=== PATIENT | female | born 1995 ===

== ENCOUNTER 2019-02-05 16:47 | Emergency (ER) | payer BC ==
--- NOTE | 2019-02-05 17:03 | EDM.PDOC ---
<Mamadou Colon J - Last Filed: 02/05/19 17:01> ED HPI GENERAL MEDICAL PROBLEM - General Chief Complaint: [employer]F [employer] SAFETY [employer] PROTECTION Problem Stated Complaint: ABDOMINAL PAIN Time Seen by Provider: 02/05/19 16:58 - History of Present Illness INITIAL COMMENTS - FREE TEXT/NARRATIVE: HISTORY AND PHYSICAL: History of present illness: Patient's 23-year-old female who presents with concern abdominal cramping and bleeding who is approximately 6-7 weeks she's had 2 prior pregnancies with normal vaginal deliveries. This note shortness of breath dizziness or other concerns. Review of systems: As per history of present illness and below otherwise all systems reviewed and negative. Past medical history: As per history of present illness and as reviewed below otherwise noncontributory. Surgical history: As per history of present illness and as reviewed below otherwise noncontributory. Social history: No reported history of drug or alcohol abuse. Family history: As per history of present illness and as reviewed below otherwise noncontributory. Physical exam: HEENT: Atraumatic, normocephalic, pupils reactive, negative for conjunctival pallor or scleral icterus, mucous membranes moist, throat clear, neck supple, nontender, trachea midline. Lungs: Clear to auscultation, breath sounds equal bilaterally, chest nontender. Heart: S1S2, regular, negative for clicks, rubs, or JVD. Abdomen: Soft, nondistended, nontender. Negative for masses or hepatosplenomegaly. Negative for costovertebral tenderness. Pelvis: Stable nontender. Genitourinary: Deferred. Rectal: Deferred. Extremities: Atraumatic, negative for cords or calf pain. Neurovascular unremarkable. Neuro: Awake, alert, oriented. Cranial nerves II through XII unremarkable. Cerebellum unremarkable. Motor and sensory unremarkable throughout. Exam nonfocal. Diagnostics: CBC CMP quantitative beta UA ABO Rh Therapeutics: None Impression: #1 first trimester bleeding #2 threatened Definitive disposition and diagnosis as appropriate pending reevaluation and review of above. low back and low abd Pain Score (Numeric/FACES): 4 - Related Data Allergies Allergy/AdvReac Type Severity Reaction Status Date / Time iodine Allergy Anaphylactic Verified 02/05/19 16:54 Shock shellfish derived Allergy Anaphylactic Verified 02/05/19 16:54 Shock Home Meds: Home Meds Pnv No.122/Iron/Folic Acid [ Multi Tablet] 1 each PO DAILY 11/08/15 [ History] Past Medical History - Past Health History Medical/Surgical History: Denies Medical/Surgical History HEENT History: Reports: None Cardiovascular History: Reports: None Respiratory History: Reports: None Gastrointestinal History: Reports: None Genitourinary History: Reports: None CHIEF OF SAFETY AND PROTECTION History: Reports: Musculoskeletal History: Reports: None Neurological History: Reports: None Psychiatric History: Reports: None Endocrine/Metabolic History: Reports: None Hematologic History: Reports: None Immunologic History: Reports: None Oncologic (Cancer) History: Reports: None Dermatologic History: Reports: None - Past Surgical History Head Surgeries/Procedures: Reports: None HEENT Surgical History: Reports: None Cardiovascular Surgical History: Reports: None Respiratory Surgical History: Reports: None GI Surgical History: Reports: Cholecystectomy Female Surgical History: Reports: None Endocrine Surgical History: Reports: None Neurological Surgical History: Reports: None Musculoskeletal Surgical History: Reports: None Dermatological Surgical History: Reports: None Social & Family History - Family History Family Medical History: Noncontributory - Tobacco Use Smoking Status *Q: Never Smoker - Caffeine Use Caffeine Use: Reports: Coffee, Soda, Tea - Recreational Drug Use Recreational Drug Use: No ED ROS GENERAL - Review of Systems Review Of Systems: ROS reveals no pertinent complaints other than HPI. ED EXAM, GENERAL - Physical Exam Exam: See Below (See dictation) Course - Vital Signs Last Recorded V/S: Last Vital Signs Temp 96.9 F 02/05/19 16:51 Pulse 97 02/05/19 16:51 Resp 18 02/05/19 16:51 BP 139/86 02/05/19 16:51 Pulse Ox 100 02/05/19 16:51 - Orders/Labs/Meds Labs: Laboratory Tests 02/05/19 02/05/19 02/05/19 Range/Units 17:19 17:19 17:19 WBC 7.67 (4.0-11.0) K/uL RBC 4.72 (4.30-5.90) M/uL Hgb 11.6 L (12.0-16.0) g/dL Hct 36.8 (36.0-46.0) % MCV 78.0 L (80.0-98.0) fL MCH 24.6 L (27.0-32.0) pg MCHC 31.5 (31.0-37.0) g/dL RDW Std Deviation 40.1 (28.0-62.0) fl RDW Coeff of Thelma 14 (11.0-15.0) % Plt Count 243 (150-400) K/uL MPV 12.00 (7.40-12.00) fL Neut % (Auto) 62.8 (48.0-80.0) % Lymph % (Auto) 29.9 (16.0-40.0) % Starke % (Auto) 6.4 (0.0-15.0) % Eos % (Auto) 0.8 (0.0-7.0) % Baso % (Auto) 0.1 (0.0-1.5) % Neut # (Auto) 4.8 (1.4-5.7) K/uL Lymph # (Auto) 2.3 (0.6-2.4) K/uL Starke # (Auto) 0.5 (0.0-0.8) K/uL Eos # (Auto) 0.1 (0.0-0.7) K/uL Baso # (Auto) 0.0 (0.0-0.1) K/uL Nucleated RBC % 0.0 /100WBC Nucleated RBCs # 0 K/uL Sodium 138 (136-145) mmol/L Potassium 3.5 (3.5-5.1) mmol/L Chloride 102 (98-107) mmol/L Carbon Dioxide 22.2 (21.0-32.0) mmol/L BUN 7 (7.0-18.0) mg/dL Creatinine 0.5 L (0.6-1.0) mg/dL Est Cr Clr Drug Dosing 149.82 mL/min Estimated GFR (MDRD) > 60.0 ml/min Glucose 95 (74-106) mg/dL Calcium 8.8 (8.5-10.1) mg/dL Total Bilirubin 0.3 (0.2-1.0) mg/dL AST 22 (15-37) IU/L ALT 36 (14-63) IU/L Alkaline Phosphatase 72 (46-116) U/L Total Protein 7.7 (6.4-8.2) g/dL Albumin 4.0 (3.4-5.0) g/dL Globulin 3.7 (2.6-4.0) g/dL Albumin/Globulin Ratio 1.1 (0.9-1.6) HCG, Quant 3283.0 mIU/mL Urine Color Urine Appearance Urine pH (5.0-8.0) Ur Specific Sanderson (1.001-1.035) Urine Protein (NEGATIVE) mg/dL Urine Glucose (UA) (NEGATIVE) mg/dL Urine Ketones (NEGATIVE) mg/dL Urine Occult Blood (NEGATIVE) Urine Nitrite (NEGATIVE) Urine Bilirubin (NEGATIVE) Urine Urobilinogen (<2.0) EU/dL Ur Leukocyte Esterase (NEGATIVE) Urine RBC (0-2/HPF) Urine WBC (0-5/HPF) Ur Epithelial Cells (NONE-FEW) Urine Bacteria (NEGATIVE) Urine Mucus (NONE-MOD) 02/05/19 Range/Units 17:30 WBC (4.0-11.0) K/uL RBC (4.30-5.90) M/uL Hgb (12.0-16.0) g/dL Hct (36.0-46.0) % MCV (80.0-98.0) fL MCH (27.0-32.0) pg MCHC (31.0-37.0) g/dL RDW Std Deviation (28.0-62.0) fl RDW Coeff of Thelma (11.0-15.0) % Plt Count (150-400) K/uL MPV (7.40-12.00) fL Neut % (Auto) (48.0-80.0) % Lymph % (Auto) (16.0-40.0) % Starke % (Auto) (0.0-15.0) % Eos % (Auto) (0.0-7.0) % Baso % (Auto) (0.0-1.5) % Neut # (Auto) (1.4-5.7) K/uL Lymph # (Auto) (0.6-2.4) K/uL Starke # (Auto) (0.0-0.8) K/uL Eos # (Auto) (0.0-0.7) K/uL Baso # (Auto) (0.0-0.1) K/uL Nucleated RBC % /100WBC Nucleated RBCs # K/uL Sodium (136-145) mmol/L Potassium (3.5-5.1) mmol/L Chloride (98-107) mmol/L Carbon Dioxide (21.0-32.0) mmol/L BUN (7.0-18.0) mg/dL Creatinine (0.6-1.0) mg/dL Est Cr Clr Drug Dosing mL/min Estimated GFR (MDRD) ml/min Glucose (74-106) mg/dL Calcium (8.5-10.1) mg/dL Total Bilirubin (0.2-1.0) mg/dL AST (15-37) IU/L ALT (14-63) IU/L Alkaline Phosphatase (46-116) U/L Total Protein (6.4-8.2) g/dL Albumin (3.4-5.0) g/dL Globulin (2.6-4.0) g/dL Albumin/Globulin Ratio (0.9-1.6) HCG, Quant mIU/mL Urine Color YELLOW Urine Appearance CLEAR Urine pH 6.5 (5.0-8.0) Ur Specific Sanderson <= 1.005 (1.001-1.035) Urine Protein NEGATIVE (NEGATIVE) mg/dL Urine Glucose (UA) NEGATIVE (NEGATIVE) mg/dL Urine Ketones 15 H (NEGATIVE) mg/dL Urine Occult Blood LARGE H (NEGATIVE) Urine Nitrite NEGATIVE (NEGATIVE) Urine Bilirubin NEGATIVE (NEGATIVE) Urine Urobilinogen 0.2 (<2.0) EU/dL Ur Leukocyte Esterase NEGATIVE (NEGATIVE) Urine RBC 4-6 (0-2/HPF) Urine WBC 0-2 (0-5/HPF) Ur Epithelial Cells FEW (NONE-FEW) Urine Bacteria FEW (NEGATIVE) Urine Mucus RARE (NONE-MOD) Meds: Medications Discontinued Medications Generic Name Dose Route Start Last Admin Trade Name Freq PRN Reason Stop Dose Admin Acetaminophen 650 mg 02/05/19 18:28 02/05/19 18:39 Tylenol PO 02/05/19 18:29 650 mg NOW ONE Administration Departure - Departure Disposition: Home, Self-Care 01 Clinical Impression: Threatened miscarriage - Discharge Information Instructions: Threatened Miscarriage, [id number] Referrals: PCP,None [Primary Care Provider] - Forms: ED Department Discharge Additional Instructions: The following information is given to patients seen in the emergency department who are being discharged to home. This information is to outline your options for follow-up care. We provide all patients seen in our emergency department with a follow-up referral. The need for follow-up, as well as the timing and circumstances, are variable depending upon the specifics of your emergency department visit. If you don't have a primary care physician on staff, we will provide you with a referral. We always advise you to contact your personal physician following an emergency department visit to inform them of the circumstance of the visit and for follow-up with them and/or the need for any referrals to a consulting specialist. The emergency department will also refer you to a specialist when appropriate. This referral assures that you have the opportunity for follow-up care with a specialist. All of these measure are taken in an effort to provide you with optimal care, which includes your follow-up. Under all circumstances we always encourage you to contact your private physician who remains a resource for coordinating your care. When calling for follow-up care, please make the office aware that this follow-up is from your recent emergency room visit. If for any reason you are refused follow-up, please contact the [facility] Emergency Department at and asked to speak to the emergency department charge nurse. [facility] [address] [place] [address] [place] [address] 1. Please start and/or continue to take your vitamin with folic acid once daily. 2. Pelvic rest until cleared by your OBGYN (no tampons, sex, etc...) 3. Tylenol as needed for pain management. 4. Follow up with her CHIEF OF SAFETY AND PROTECTION in the next 1-2 days. Please have your quant HCG ( hormone) repeated in 2 days 5. Return to the ED as needed and as discussed. <Juli Mendez E - Last Filed: 02/05/19 19:08> ED HPI GENERAL MEDICAL PROBLEM - History of Present Illness INITIAL COMMENTS - FREE TEXT/NARRATIVE: Ultrasound shows a single intrauterine gestational sac and yolk sac. pole and cardiac activity are not identified likely due to early stage of . Of concern, the sac is situated low with the endometrial canal. Findings were shared and discussed with patient. Supportive care measures were reviewed and discussed. Encouraged her to follow-up with her [facility]F OF SAFETY AND PROTECTION sooner than she had planned as she will need a repeat quantitative hCG. Patient voices understanding and is agreeable to plan of care. Denies any further questions or concerns at this time. Plan: 1. Please start and/or continue to take your vitamin with folic acid once daily. 2. Pelvic rest until cleared by your OBGYN (no tampons, sex, etc...) 3. Tylenol as needed for pain management. 4. Follow up with her [facility] [employer] SAF[employer]Y [employer] PROTECTION in the next 1-2 days. Return to the ED as needed and as discussed. Departure - Departure Time of Disposition: 19:07
[2019-02-05 17:56] LABS: BLOOD UREA NITROGEN,BUN 7 mg/dL (7.0-18.0); CARBON DIOXIDE,CO2 22.2 mmol/L (21.0-32.0); CHLORIDE,CL 102 mmol/L (98-107); GLUCOSE RANDOM 95 mg/dL (74-106); POTASSIUM,K 3.5 mmol/L (3.5-5.1); SODIUM,NA 138 mmol/L (136-145)
[2019-02-05] MEDS ORDERED: Acetaminophen 325 MG Tab PO ONE (18:28)
--- NOTE | 2019-02-05 19:02 | US ---
INDICATION: Vaginal bleeding TECHNIQUE: Ultrasound OB pelvis transvaginal. Real-time gore-scale imaging of the pelvis was performed. COMPARISON: None FINDINGS: Sonographic imaging demonstrates a single gestational sac and yolk sac. Mean sac diameter is 0.6 cm. pole and cardiac activity are not identified with certainty. The sac is situated low within the endometrial canal. There is some heterogeneous material within the lower endometrium. The ovaries are of normal size. There is a 1.3 x 1.3 x 1.5 cm heterogeneous lesion on the left ovary likely representing corpus luteum cyst. There are no suspicious fluid collections noted in the cul-de-sac. IMPRESSION: Single intrauterine gestational sac and yolk sac. pole and cardiac activity not identified likely due to early stage of . Of concern, the sac is situated low within the endometrial canal. Heterogeneous material in the lower endometrium likely represents small amount of hemorrhage. Likely corpus luteum cyst on the left ovary. Dictated by Bonnie Harper MD @ Feb 05 2019 6:50PM Signed by Dr. Bonnie Harper @ Feb 05 2019 7:01PM
[2019-02-05 19:34] VITALS: BP 145/80; PULSE 102
== END 2019-02-05 19:33 | disposition home or self-care (01) ==
LOC: MW.ED 16:47
DX: O20.0 Threatened abortion (principal); Z3A.01 Less than 8 weeks gestation of pregnancy; Z88.8 Allergy status to other drugs, medicaments and biological substances; Z91.013 Allergy to seafood
CPT/HCPCS: 36415; 76801; 80053; 81001; 84702; 85025; 99284; A9270; 99283

== ENCOUNTER 2019-05-07 22:38 | Emergency (ER) | payer BC ==
[2019-05-07] MEDS ORDERED: Sodium Chloride 0.9% 1,000 ML IV ONE (23:15)
[2019-05-07] MEDS ORDERED: Sodium Chloride 0.9% 10 ML Syringe FLUSH PRN (23:15)
[2019-05-07] MEDS ORDERED: Famotidine 20 MG/2 ML SDV IVPUSH ONE (23:15)
[2019-05-07] MEDS ORDERED: Ondansetron 4 MG/2 ML SDV IVPUSH ONE (23:15)
[2019-05-07] MEDS ORDERED: Sodium Chloride 0.9% 2.5 ML Syringe FLUSH PRN (23:15)
--- NOTE | 2019-05-07 23:17 | EDM.PDOC ---
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 She said she has a fever twice today and the last one was 101.5 for which she took Tylenol. She has had intermittent vomiting and she has not been able to keep anything down despite taking Zofran she was given by her provider. She has no urinary complaints no flank pain and no specific localization of her abdominal pain. Not had diarrhea and she has no ill contacts and no upper respiratory symptoms such as chest pain shortness of breath sore throat or runny nose. The patient did get her influenza shot this year. She tells me that she did not connect with her provider today about her diffuse abdominal pain with vomiting and fever. She also says that when she was vomiting he did see some streaks of blood but no clots or kylah blood which worried her. Review of systems: As per history of present illness and below otherwise all systems reviewed and negative. Past medical history: As per history of present illness and as reviewed below otherwise noncontributory. Surgical history: As per history of present illness and as reviewed below otherwise noncontributory. Social history: No reported history of drug or alcohol abuse. Family history: As per history of present illness and as reviewed below otherwise noncontributory. Physical exam: General: Well-developed well-nourished female who is nontoxic and vital signs are noted by me. She moves easily in the ED without distress HEENT: Atraumatic, normocephalic, pupils reactive, negative for conjunctival pallor or scleral icterus, mucous membranes moist, throat clear, neck supple, nontender, trachea midline. Lungs: Clear to auscultation, breath sounds equal bilaterally, chest nontender. Heart: S1S2, regular, and rhythm no overt murmurs Abdomen: Soft, nondistended, some mild diffuse abdominal pain without localization and the uterus is palpable just below the umbilicus without tenderness.. Negative for masses or hepatosplenomegaly. Negative for costovertebral tenderness. Pelvis: Stable nontender. Genitourinary: Deferred. Rectal: Deferred. Extremities: Atraumatic, negative for cords or calf pain. Neurovascular unremarkable. Neuro: Awake, alert, oriented. Cranial nerves II through XII unremarkable. Cerebellum unremarkable. Motor and sensory unremarkable throughout. Exam nonfocal. Diagnostics: heart tones per nursing CBC CMP hCG quant UA with reflex lipase influenza lactic acid urine culture pelvic US/renal US Therapeutics: IV fluids Pepcid Zofran Rocephin The heart tones per nursing were [phone]: Case was discussed with Dr. Bolanos and he is aware of the ultrasound results of the lab test and the patient presentation. He agrees with discharge home with close follow-up in the clinic and wants the patient to call in the morning for that follow-up. Patient still is afebrile here in the ED Impression: UTI, abdominal pain second trimester with complete placenta previa stable hiStory of fever Definitive disposition and diagnosis as appropriate pending reevaluation and review of above. Abdomen Pain Score (Numeric/FACES): 8 - Related Data Allergies Allergy/AdvReac Type Severity Reaction Status Date / Time iodine Allergy Anaphylactic Verified 05/07/19 22:53 Shock shellfish derived Allergy Anaphylactic Verified 05/07/19 22:53 Shock Home Meds: Home Meds No122/Iron/Folic Acid [ Multi Tablet] 1 each PO DAILY 11/08/15 [History] Non-Formulary Medication [NF Drug] 1 each PO ASDIRECTED PRN 05/07/19 [History] Ondansetron [Zofran] 8 mg PO ASDIRECTED PRN 05/07/19 [History] Past Medical History - Past Health History Medical/Surgical History: Denies Medical/Surgical History HEENT History: Reports: None Cardiovascular History: Reports: None Respiratory History: Reports: None Gastrointestinal History: Reports: None Genitourinary History: Reports: None 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: Musculoskeletal History: Reports: None Neurological History: Reports: None Psychiatric History: Reports: None Endocrine/Metabolic History: Reports: None Hematologic History: Reports: None Immunologic History: Reports: None Oncologic (Cancer) History: Reports: None Dermatologic History: Reports: None - Infectious Disease History Infectious Disease History: Reports: Chicken Pox - Past Surgical History Head Surgeries/Procedures: Reports: None HEENT Surgical History: Reports: None Cardiovascular Surgical History: Reports: None Respiratory Surgical History: Reports: None GI Surgical History: Reports: Cholecystectomy Female Surgical History: Reports: None Endocrine Surgical History: Reports: None Neurological Surgical History: Reports: None Musculoskeletal Surgical History: Reports: None Dermatological Surgical History: Reports: None Social & Family History - Family History Family Medical History: Noncontributory - Tobacco Use Smoking Status *Q: Never Smoker - Caffeine Use Caffeine Use: Reports: Coffee, Energy Drinks - Recreational Drug Use Recreational Drug Use: No ED ROS GENERAL - Review of Systems Review Of Systems: Comprehensive ROS is negative, except as noted in HPI. ED EXAM, GENERAL - Physical Exam Exam: See Below (see Dictation) Course - Vital Signs Last Recorded V/S: Last Vital Signs Temp 36.6 C 05/07/19 22:55 Pulse 80 05/07/19 22:55 Resp 16 05/07/19 22:55 BP 111/77 05/07/19 22:55 Pulse Ox 96 05/07/19 22:55 - Orders/Labs/Meds Orders: Active Orders 24 hr Category Date Time Status OB 2 Or 3 Tri Sgl 1st Gest [US] Stat Exams 05/07/19 23:51 Stop Req CULTURE URINE [RM] Stat Lab 05/08/19 00:10 Received Sodium Chloride 0.9% [Saline Flush] Med 05/07/19 23:15 Active 10 ml FLUSH ASDIRECTED PRN Sodium Chloride 0.9% [Saline Flush] Med 05/07/19 23:15 Active 2.5 ml FLUSH ASDIRECTED PRN Saline Lock Insert [OM.PC] Stat Oth 05/07/19 23:15 Ordered Medication Orders Sodium Chloride (Saline Flush) 10 ml FLUSH ASDIRECTED PRN PRN Reason: Keep Vein Open Sodium Chloride (Saline Flush) 2.5 ml FLUSH ASDIRECTED PRN PRN Reason: Keep Vein Open Labs: Laboratory Tests 05/07/19 05/07/19 05/07/19 Range/Units 23:05 23:05 23:05 WBC 10.57 (4.0-11.0) K/uL RBC 4.57 (4.30-5.90) M/uL Hgb 12.0 (12.0-16.0) g/dL Hct 35.1 L (36.0-46.0) % MCV 76.8 L (80.0-98.0) fL MCH 26.3 L (27.0-32.0) pg MCHC 34.2 (31.0-37.0) g/dL RDW Std Deviation 49.7 (28.0-62.0) fl RDW Coeff of Thelma 18 H (11.0-15.0) % Plt Count 152 (150-400) K/uL MPV 12.00 (7.40-12.00) fL Neut % (Auto) 75.2 (48.0-80.0) % Lymph % (Auto) 19.0 (16.0-40.0) % Sebastian % (Auto) 5.1 (0.0-15.0) % Eos % (Auto) 0.5 (0.0-7.0) % Baso % (Auto) 0.2 (0.0-1.5) % Neut # (Auto) 8.0 H (1.4-5.7) K/uL Lymph # (Auto) 2.0 (0.6-2.4) K/uL Sebastian # (Auto) 0.5 (0.0-0.8) K/uL Eos # (Auto) 0.1 (0.0-0.7) K/uL Baso # (Auto) 0.0 (0.0-0.1) K/uL Nucleated RBC % 0.0 /100WBC Nucleated RBCs # 0 K/uL Lactate 0.7 (0.20-2.00) mmol/L Sodium 138 (136-145) mmol/L Potassium 3.1 L (3.5-5.1) mmol/L Chloride 103 (98-107) mmol/L Carbon Dioxide 19.8 L (21.0-32.0) mmol/L BUN 7 (7.0-18.0) mg/dL Creatinine 0.4 L (0.6-1.0) mg/dL Est Cr Clr Drug Dosing 185.66 mL/min Estimated GFR (MDRD) > 60.0 ml/min Glucose 92 (74-106) mg/dL Calcium 8.9 (8.5-10.1) mg/dL Total Bilirubin 0.3 (0.2-1.0) mg/dL AST 13 L (15-37) IU/L ALT 15 (14-63) IU/L Alkaline Phosphatase 61 (46-116) U/L Total Protein 7.2 (6.4-8.2) g/dL Albumin 3.2 L (3.4-5.0) g/dL Globulin 4.0 (2.6-4.0) g/dL Albumin/Globulin Ratio 0.8 L (0.9-1.6) Lipase 85 (73-393) U/L HCG, Quant 6882.0 mIU/mL Urine Color Urine Appearance Urine pH (5.0-8.0) Ur Specific Phil Campbell (1.001-1.035) Urine Protein (NEGATIVE) mg/dL Urine Glucose (UA) (NEGATIVE) mg/dL Urine Ketones (NEGATIVE) mg/dL Urine Occult Blood (NEGATIVE) Urine Nitrite (NEGATIVE) Urine Bilirubin (NEGATIVE) Urine Urobilinogen (<2.0) EU/dL Ur Leukocyte Esterase (NEGATIVE) Urine RBC (0-2/HPF) Urine WBC (0-5/HPF) Ur Epithelial Cells (NONE-FEW) Urine Bacteria (NEGATIVE) 05/08/19 Range/Units 00:10 WBC (4.0-11.0) K/uL RBC (4.30-5.90) M/uL Hgb (12.0-16.0) g/dL Hct (36.0-46.0) % MCV (80.0-98.0) fL MCH (27.0-32.0) pg MCHC (31.0-37.0) g/dL RDW Std Deviation (28.0-62.0) fl RDW Coeff of Thelma (11.0-15.0) % Plt Count (150-400) K/uL MPV (7.40-12.00) fL Neut % (Auto) (48.0-80.0) % Lymph % (Auto) (16.0-40.0) % Sebastian % (Auto) (0.0-15.0) % Eos % (Auto) (0.0-7.0) % Baso % (Auto) (0.0-1.5) % Neut # (Auto) (1.4-5.7) K/uL Lymph # (Auto) (0.6-2.4) K/uL Sebastian # (Auto) (0.0-0.8) K/uL Eos # (Auto) (0.0-0.7) K/uL Baso # (Auto) (0.0-0.1) K/uL Nucleated RBC % /100WBC Nucleated RBCs # K/uL Lactate (0.20-2.00) mmol/L Sodium (136-145) mmol/L Potassium (3.5-5.1) mmol/L Chloride (98-107) mmol/L Carbon Dioxide (21.0-32.0) mmol/L BUN (7.0-18.0) mg/dL Creatinine (0.6-1.0) mg/dL Est Cr Clr Drug Dosing mL/min Estimated GFR (MDRD) ml/min Glucose (74-106) mg/dL Calcium (8.5-10.1) mg/dL Total Bilirubin (0.2-1.0) mg/dL AST (15-37) IU/L ALT (14-63) IU/L Alkaline Phosphatase (46-116) U/L Total Protein (6.4-8.2) g/dL Albumin (3.4-5.0) g/dL Globulin (2.6-4.0) g/dL Albumin/Globulin Ratio (0.9-1.6) Lipase (73-393) U/L HCG, Quant mIU/mL Urine Color YELLOW Urine Appearance SLT CLOUDY Urine pH 6.5 (5.0-8.0) Ur Specific Phil Campbell 1.025 (1.001-1.035) Urine Protein 100 H (NEGATIVE) mg/dL Urine Glucose (UA) NEGATIVE (NEGATIVE) mg/dL Urine Ketones >=80 (NEGATIVE) mg/dL Urine Occult Blood MODERATE H (NEGATIVE) Urine Nitrite POSITIVE H (NEGATIVE) Urine Bilirubin NEGATIVE (NEGATIVE) Urine Urobilinogen 0.2 (<2.0) EU/dL Ur Leukocyte Esterase SMALL H (NEGATIVE) Urine RBC 1-2 (0-2/HPF) Urine WBC 10-15 (0-5/HPF) Ur Epithelial Cells OCCASIONAL (NONE-FEW) Urine Bacteria 1+ H (NEGATIVE) Meds: Medications Generic Name Dose Route Start Last Admin Trade Name Freq PRN Reason Stop Dose Admin Sodium Chloride 10 ml 05/07/19 23:15 Saline Flush FLUSH ASDIRECTED PRN Keep Vein Open Sodium Chloride 2.5 ml 05/07/19 23:15 Saline Flush FLUSH ASDIRECTED PRN Keep Vein Open Discontinued Medications Generic Name Dose Route Start Last Admin Trade Name Nato PRN Reason Stop Dose Admin Famotidine 20 mg 05/07/19 23:15 05/07/19 23:27 Pepcid IVPUSH 05/07/19 23:16 20 mg ONETIME ONE Administration Sodium Chloride 1,000 mls @ 999 mls/hr 05/07/19 23:15 05/07/19 23:27 Normal Saline IV 05/08/19 00:15 999 mls/hr STAT ONE Administration Ceftriaxone Sodium/Dextrose 2 50 mls @ 100 mls/hr 05/08/19 00:47 05/08/19 01: 03 gm/ Premix IV 05/08/19 01:16 100 mls/hr ONETIME ONE Administration Sodium Chloride 1,000 mls @ 999 mls/hr 05/08/19 00:47 05/08/19 01:03 Normal Saline IV 05/08/19 01:47 999 mls/hr STAT ONE Administration Ondansetron HCl 4 mg 05/07/19 23:15 05/07/19 23:27 Zofran IVPUSH 05/07/19 23:16 4 mg ONETIME ONE Administration Departure - Departure Time of Disposition: 01:59 Disposition: Home, Self-Care 01 Condition: Good Clinical Impression: UTI, Urinary tract infectious disease, Second trimester - Discharge Information Referrals: Frederic Calvo MD [Primary Care Provider] - Forms: ED Department Discharge Additional Instructions: The following information is given to patients seen in the emergency department who are being discharged to home. This information is to outline your options for follow-up care. We provide all patients seen in our emergency department with a follow-up referral. The need for follow-up, as well as the timing and circumstances, are variable depending upon the specifics of your emergency department visit. If you don't have a primary care physician on staff, we will provide you with a referral. We always advise you to contact your personal physician following an emergency department visit to inform them of the circumstance of the visit and for follow-up with them and/or the need for any referrals to a consulting specialist. The emergency department will also refer you to a specialist when appropriate. This referral assures that you have the opportunity for followup care with a specialist. All of these measure are taken in an effort to provide you with optimal care, which includes your followup. Under all circumstances we always encourage you to contact your private physician who remains a resource for coordinating your care. When calling for followup care, please make the office aware that this follow-up is from your recent emergency room visit. If for any reason you are refused follow-up, please contact the [facility] emergency department at and ask to speak to the emergency department charge nurse. [facility] [address] [address] Push hydration and use [id number] Tylenol for any fever and pain management and please call the clinic later this morning and schedule a follow- up appointment with Elizabeth Arnold in the next several days for reevaluation and further care. You have been given an antibiotic to take for your urine infection and a culture was sent and if there is any change in this care plan because of the culture results you will be notified. Return to ER as needed and as discussed Sepsis Event Note - Evaluation Sepsis Screening Result: No Definite Risk - Focused Exam Vital Signs: Vital Signs Temp Pulse Resp BP Pulse Ox 05/07/19 22:55 36.6 C 80 16 111/77 96 Date Exam was Performed: 05/08/19 Time Exam was Performed: 01:58 - My Orders Last 24 Hours: My Active Orders 05/07/19 23:15 Sodium Chloride 0.9% [Saline Flush] 10 ml FLUSH ASDIRECTED PRN Sodium Chloride 0.9% [Saline Flush] 2.5 ml FLUSH ASDIRECTED PRN Saline Lock Insert [OM.PC] Stat 05/07/19 23:51 OB 2 Or 3 Tri Sgl 1st Gest [US] Stat 05/08/19 00:10 CULTURE URINE [RM] Stat - Assessment/Plan Last 24 Hours: My Active Orders 05/07/19 23:15 Sodium Chloride 0.9% [Saline Flush] 10 ml FLUSH ASDIRECTED PRN Sodium Chloride 0.9% [Saline Flush] 2.5 ml FLUSH ASDIRECTED PRN Saline Lock Insert [OM.PC] Stat 05/07/19 23:51 OB 2 Or 3 Tri Sgl 1st Gest [US] Stat 05/08/19 00:10 CULTURE URINE [] Stat
[2019-05-08 00:09] LABS: BLOOD UREA NITROGEN,BUN 7 mg/dL (7.0-18.0); CARBON DIOXIDE,CO2 19.8 mmol/L (21.0-32.0); CHLORIDE,CL 103 mmol/L (98-107); GLUCOSE RANDOM 92 mg/dL (74-106); LIPASE 85 U/L (73-393); POTASSIUM,K 3.1 mmol/L (3.5-5.1); SODIUM,NA 138 mmol/L (136-145)
[2019-05-08] MEDS ORDERED: cefTRIAXone 2 GM in Premix Bag 1 BAG IV ONE (00:47)
[2019-05-08] MEDS ORDERED: Sodium Chloride 0.9% 1,000 ML IV ONE (00:47)
--- NOTE | 2019-05-08 01:07 | US ---
INDICATION: Abdominal pain with fever, gestational age by a LMP is 19 weeks 4 days TECHNIQUE: Ultrasound OB pelvis transabdominal. Real-time gore-scale imaging of the fetus was performed. COMPARISON: February 05, 2019 FINDINGS: Sonographic imaging demonstrates a single living intrauterine gestation. Fetus demonstrates a regular cardiac rate of 148 beats per minute. Fetus has a vertex orientation. The placenta lies posterior with complete placenta previa. Amniotic fluid volume appears normal. Single deepest vertical pocket: 3.9 cm. The cervical length is 4.3 cm. The composite ultrasound gestational age is calculated at 19 weeks 3 days with an estimated sonographic due date of September 29, 2019. The estimated weight is 315 grams which lies at the 60.1 %. The following biometric measurements were obtained: Biparietal diameter: 4.3 cm/19 weeks 0 days Head circumference: 16.5 cm/19 weeks 2 Abdominal circumference: 14.4 cm/19 weeks 5 days Femur length: 3.2 cm/20 weeks 1 day IMPRESSION: Single viable intrauterine . Size corresponds with dates. There is complete placenta previa. Findings discussed with Dr. Garcia at 1:06am at 05/08/2019. Dictated by Bonnie Harper MD @ May 08 2019 1:06AM Signed by Dr. Bonnie Harper @ May 08 2019 1:06AM
--- NOTE | 2019-05-08 01:50 | US ---
INDICATION: UTI TECHNIQUE: Ultrasound renal bilateral. Phipps-scale and color Doppler sonographic images were acquired of the kidneys and urinary bladder. COMPARISON: None FINDINGS: Right kidney: 11.6 x 5.2 x 5.3 cm. Normal echotexture. The cortex is mildly hypoechoic. No masses, stones, or hydronephrosis. Left kidney: 12.3 x 6.1 x 5.8 cm. Normal echotexture. The cortex is mildly hypoechoic. No masses, stones, or hydronephrosis. IMPRESSION: The renal cortex is mildly hypoechoic bilaterally. This is nonspecific but can be seen with pyelonephritis. No hydronephrosis, stone or perinephric fluid collection. Dictated by Bonnie Harper MD @ May 08 2019 1:35AM (Electronically Signed)
[2019-05-08 02:37] VITALS: PULSE 87
[2019-05-08 02:38] VITALS: BP 119/75
== END 2019-05-08 02:27 | disposition home or self-care (01) ==
LOC: MW.ED 22:38
DX: O23.42 Unspecified infection of urinary tract in pregnancy, second trimester (principal); Z88.8 Allergy status to other drugs, medicaments and biological substances; Z91.013 Allergy to seafood; Z79.899 Other long term (current) drug therapy; Z3A.19 19 weeks gestation of pregnancy
CPT/HCPCS: 36415; 76775; 76805; 80053; 81001; 83605; 83690; 84702; 85025; 87086; 87088; 87186; 87804; 96361; 96365; 96375; 99284; J0696; J2405; J7030; S0028; J3490

== ENCOUNTER 2019-09-13 10:13 | Inpatient (IN) | payer BC ==
[2019-09-13] MEDS ORDERED: Sodium Chloride 0.9% 2.5 ML Syringe FLUSH PRN (10:22)
[2019-09-13] MEDS ORDERED: Sodium Chloride 0.9% 10 ML SDV IV PRN (10:22)
[2019-09-13] MEDS ORDERED: Citric Acid/Sodium Citrate Solution 30 ML Cup PO ONE (10:22)
[2019-09-13] MEDS ORDERED: Sodium Chloride 0.9% 10 ML Syringe FLUSH PRN (10:22)
[2019-09-13] MEDS ORDERED: ceFAZolin 2 GM in Premix Bag 1 BAG IV ONE (10:22)
[2019-09-13] MEDS ORDERED: Oxytocin/0.9 % Sodium Chloride 30 UNIT/500 ML BAG IV SCH (10:30)
[2019-09-13] MEDS: Lactated Ringers 1,000 ML IV SCH ×2 (11:01→12:05)
[2019-09-13] MEDS ORDERED: Propofol 200 MG/20 ML SDV ONE (11:23)
[2019-09-13] MEDS ORDERED: Ondansetron 4 MG/2 ML SDV ONE (11:23)
[2019-09-13] MEDS ORDERED: Oxytocin 10 Units/1 ML SDV ONE (11:24)
--- NOTE | 2019-09-13 11:39 | PCM.LDHP ---
L&D History of Present Illness - General Date of Service: 09/13/19 Admit Problem/Dx: Patient Status Order with Admit Dx/Problem 09/13/19 10:22 Patient Status [ADT] Routine Admission Diagnosis/Problem Admission Diagnosis/Problem 09/13/19 11:34 Erika is a 24 yo at 37.0 weeks gestation (ALBERTO 10/04/2019) that presents today for a medically indicated primary section due to complete placenta previa. O pos, RI, GBS neg. Ax: iodine/shellfish (plan to use chlorhexadine products for procedure). Medical history: A1GDM, anxiety, migraines, bicornate uterus. Patient has been seen by Dr. Bolanos about PCS in office, RBAs, SEs discussed, consents signed in office. Patient reports no problems, questions, or concerns at this time except anxiety due to impending surgery. Patient's significant other at the bedside with her. Source of Information: Patient History Limitations: Reports: No Limitations - History of Present Illness Improves with: Reports: None Worsens with: Reports: None Associated Symptoms: Reports: N - Related Data Allergies/Adverse Reactions: Allergies Allergy/AdvReac Type Severity Reaction Status Date / Time iodine Allergy Anaphylactic Verified 09/09/19 12:40 Shock shellfish derived Allergy Anaphylactic Verified 09/09/19 12:40 Shock Home Medications: Home Meds No122/Iron/Folic Acid [ Multi Tablet] 1 each PO DAILY 11/08/15 [History] Past Medical History - Past Health History Medical/Surgical History: Denies Medical/Surgical History HEENT History: Reports: Other (See Below) Other HEENT History: wears glasses Cardiovascular History: Reports: None (3) Respiratory History: Reports: None Gastrointestinal History: Reports: None Genitourinary History: Reports: None 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: , 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 (See Below) (Bicorante uterus) : 3 Para: 2 LMP (Approximate): (Complete placenta previa, anterior) Musculoskeletal History: Reports: None Neurological History: Reports: Migraines Psychiatric History: Reports: Anxiety Endocrine/Metabolic History: Reports: Diabetes, Gestational (A1 GDM) Hematologic History: Reports: None Immunologic History: Reports: None Oncologic (Cancer) History: Reports: None Dermatologic History: Reports: None - Infectious Disease History Infectious Disease History: Reports: Chicken Pox - Past Surgical History Head Surgeries/Procedures: Reports: None HEENT Surgical History: Reports: Oral Surgery Other HEENT Surgeries/Procedures: wisdom teeth extraction Cardiovascular Surgical History: Reports: None Respiratory Surgical History: Reports: None GI Surgical History: Reports: Cholecystectomy Female Surgical History: Reports: None Endocrine Surgical History: Reports: None Neurological Surgical History: Reports: None Musculoskeletal Surgical History: Reports: None Dermatological Surgical History: Reports: None Social & Family History - Family History Family Medical History: Noncontributory - Tobacco Use Smoking Status *Q: Never Smoker - Caffeine Use Caffeine Use: Reports: Coffee, Energy Drinks - Recreational Drug Use Drug Use in Last 12 Months: No H&P Review of Systems - Review of Systems: Review Of Systems: Comprehensive ROS is negative, except as noted in HPI. General: Reports: No Symptoms HEENT: Reports: No Symptoms Pulmonary: Reports: No Symptoms Cardiovascular: Reports: No Symptoms Gastrointestinal: Reports: No Symptoms Genitourinary: Reports: No Symptoms Musculoskeletal: Reports: No Symptoms Skin: Reports: No Symptoms Psychiatric: Reports: No Symptoms Neurological: Reports: No Symptoms Hematologic/Lymphatic: Reports: No Symptoms Immunologic: Reports: No Symptoms L&D Exam - Exam Exam: See Below - Vital Signs Vital Signs: T 97.9 F, HR 96, BP 127/87 (96), 100% on RA, Pain 0/10 Weight: 203 lb - OB Specific Fundal Height In cm: 37 Contraction Duration (sec): 0 Contraction Frequency (min): 0 Movement: Active Heart Tones: Present Heart Tones per Min: 140 Heart Rate (FHR) Variability: Moderate (6-25 bmp) (Pos accels, Neg decels) - Exam General: Alert, Oriented HEENT: Conjunctiva Clear, EACs Clear, EOMI, Hearing Intact, Mucosa Moist & [place] , PERRLA Neck: Supple, Trachea Midline Lungs: Clear to Auscultation, Normal Respiratory Effort Cardiovascular: Regular Rate, Regular Rhythm GI/Abdominal Exam: Normal Bowel Sounds, Soft, Non-Tender, No Organomegaly, No Distention Rectal Exam: Deferred Genitourinary: Deferred Back Exam: Normal Inspection, Full Range of Motion Extremities: Normal Inspection, Normal Range of Motion, Non-Tender, No Pedal Edema, Normal Capillary Refill Skin: Warm, Dry, Intact Neurological: Cranial Nerves Intact, Reflexes Equal Bilateral Psychiatric: Alert, Normal Affect, Normal Mood - Patient Data Lab Results Last 24 hrs: Laboratory Results - last 24 hr 09/13/19 Range/Units 11:17 POC Glucose 79 (60-110) mg/dL - Problem List (1) Placenta previa SNOMED Code(s): 24576548 ICD Code: O44.00 - COMPLETE PLACENTA PREVIA NOS OR WITHOUT HEMOR, UNSP TRI Status: Acute Priority: High Current Visit: Yes (2) 37 weeks gestation of SNOMED Code(s): 18290018 ICD Code: Z3A.37 - 37 WEEKS GESTATION OF Status: Acute Priority : High Current Visit: Yes Problem List Initiated/Reviewed/Updated: Yes Orders Last 24hrs: Active Orders 24 hr Category Date Time Status Patient Status [ADT] Routine ADT 09/13/19 10:22 Active Non Stress Test [RC] PER UNIT ROUTINE Care 09/13/19 10:22 Active Notify Provider Vital Signs [RC] PRN Care 09/13/19 10:22 Active Procedure Site Prep Instruct [RC] ASDIRECTED Care 09/13/19 10:22 Active Up ad Ragini [RC] ASDIRECTED Care 09/13/19 10:22 Active Verify Patient Consent Obtain [RC] ASDIRECTED Care 09/13/19 10:22 Active Vital Signs [RC] PER UNIT ROUTINE Care 09/13/19 10:22 Active CBC W/O DIFF,HEMOGRAM [HEME] Routine Lab 09/13/19 10:22 Ordered RED BLOOD CELLS LP [BBK] Routine Lab 09/13/19 10:22 Ordered RPR (SYPHILIS SERO) W/ RFLX [REF] Routine Lab 09/13/19 10:22 Ordered TYPE AND SCREEN [BBK] Routine Lab 09/13/19 10:22 Ordered Lactated Ringers [Ringers, Lactated] 1,000 ml Med 09/13/19 10:30 Active IV BOLUS Oxytocin/0.9 % Sodium Chloride [Oxytocin 30 Unit/500 ML Med 09/13/19 10:30 Active -NS] 30 unit in 500 ml IV TITRATE Sodium Chloride 0.9% [Normal Saline] Med 09/13/19 10:22 Active 10 ml IV ASDIRECTED PRN Sodium Chloride 0.9% [Saline Flush] Med 09/13/19 10:22 Active 10 ml FLUSH ASDIRECTED PRN Sodium Chloride 0.9% [Saline Flush] Med 09/13/19 10:22 Active 2.5 ml FLUSH ASDIRECTED PRN Peripheral IV Insertion Adult [OM.PC] Routine Oth 09/13/19 10:22 Ordered Schedule Procedure [COMM] Per Unit Routine Oth 09/13/19 10:22 Ordered Resuscitation Status Routine Resus Stat 09/13/19 10:22 Ordered Medication Orders Lactated Ringer's (Ringers, Lactated) 1,000 mls @ 500 mls/hr IV BOLUS COLLIN Last Admin: 09/13/19 11:01 Dose: 500 mls/hr Oxytocin/Sodium Chloride (Oxytocin 30 Unit/500 Ml-Ns) 30 unit in 500 mls @ 250 mls/hr IV TITRATE COLLIN Sodium Chloride (Saline Flush) 10 ml FLUSH ASDIRECTED PRN PRN Reason: Keep Vein Open Sodium Chloride (Saline Flush) 2.5 ml FLUSH ASDIRECTED PRN PRN Reason: Keep Vein Open Sodium Chloride (Normal Saline) 10 ml IV ASDIRECTED PRN PRN Reason: IV Use Assessment/Plan Comment:: Erika is a 24 yo at 37.0 weeks gestation (ALBERTO 10/04/2019) that presents today for a medically indicated primary section due to complete placenta previa. O pos, RI, GBS neg. Ax: iodine/shellfish (plan to use chlorhexadine products for procedure). Medical history: A1GDM, anxiety, migraines, bicornate uterus. Patient has been seen by Dr. Bolanos about PCS in office, RBAs, SEs discussed, operative and blood product consents signed in office. Physical exam unremarkable, continue with planned primary CS due to complete placenta previa. FHR Cat I, no problems or concerns at this time. See orders, T/C for 2 units PRBCs and CBC collected, pending.
[2019-09-13] MEDS ORDERED: ceFAZolin 1 GM Vial ONE (11:43)
[2019-09-13] MEDS ORDERED: Sodium Chloride 0.9% 40 ML ONE (11:43)
[2019-09-13] MEDS ORDERED: ePHEDrine 50 MG/ML SDV ONE (11:43)
--- NOTE | 2019-09-13 11:43 | PCM.PREANE ---
Preanesthetic Assessment - Anesthesia/Transfusion/Family Hx Anesthesia History: Prior Anesthesia Without Reaction (epidural for vaginal delivery x 2) Other Type of Anesthesia Reaction Comment: PT DENIES ANY FAMILY HX OF ANESTHESIA PROBLEMS Family History of Anesthesia Reaction: No Transfusion History: No Prior Transfusion(s) - Review of Systems General: No Symptoms Pulmonary: No Symptoms Cardiovascular: No Symptoms Gastrointestinal: No Symptoms Neurological: No Symptoms Other: Reports: None - Physical Assessment NPO Status Date: 09/12/19 Height: 5 ft 5 in Weight: 92.079 kg ASA Class: 2 Mental Status: Alert & Oriented x3 Airway Class: Mallampati = 2 Dentition: Reports: Normal Dentition ROM/Head Extension: Full Lungs: Clear to Auscultation, Normal Respiratory Effort Cardiovascular: Regular Rate, Regular Rhythm - Lab Values: Laboratory Last Values POC Glucose 79 mg/dL (60-110) 09/13/19 11:17 - Allergies Allergies/Adverse Reactions: Allergies Allergy/AdvReac Type Severity Reaction Status Date / Time iodine Allergy Anaphylactic Verified 09/09/19 12:40 Shock shellfish derived Allergy Anaphylactic Verified 09/09/19 12:40 Shock - Blood Blood Available: Yes - Anesthesia Plan Pre-Op Medication Ordered: Antacids - Acknowledgements Anesthesia Type Planned: Spinal Pt an Appropriate Candidate for the Planned Anesthesia: Yes Alternatives and Risks of Anesthesia Discussed w Pt/Guardian: Yes Pt/Guardian Understands and Agrees with Anesthesia Plan: Yes Additional Comments: PMH: complete placenta previa, gest DM-diet controlled, Hb=11.6, [id number] PLAN: spinal, second periph iv PreAnesthesia Questionnaire - Past Health History Medical/Surgical History: Denies Medical/Surgical History HEENT History: Reports: Other (See Below) Other HEENT History: wears glasses Cardiovascular History: Reports: None (3) Respiratory History: Reports: None Gastrointestinal History: Reports: None Genitourinary History: Reports: None 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: Musculoskeletal History: Reports: None Neurological History: Reports: Migraines Psychiatric History: Reports: None Endocrine/Metabolic History: Reports: Diabetes, Gestational Hematologic History: Reports: None Immunologic History: Reports: None Oncologic (Cancer) History: Reports: None Dermatologic History: Reports: None - Infectious Disease History Infectious Disease History: Reports: Chicken Pox - Past Surgical History Head Surgeries/Procedures: Reports: None HEENT Surgical History: Reports: Oral Surgery Other HEENT Surgeries/Procedures: wisdom teeth extraction Cardiovascular Surgical History: Reports: None Respiratory Surgical History: Reports: None GI Surgical History: Reports: Cholecystectomy Female Surgical History: Reports: None Endocrine Surgical History: Reports: None Neurological Surgical History: Reports: None Musculoskeletal Surgical History: Reports: None Dermatological Surgical History: Reports: None - SUBSTANCE USE Smoking Status *Q: Never Smoker - HOME MEDS Home Medications: Home Meds No122/Iron/Folic Acid [ Multi Tablet] 1 each PO DAILY 11/08/15 [History] - CURRENT (IN HOUSE) MEDS Current Meds: Current Medications Lactated Ringer's (Ringers, Lactated) 1,000 mls @ 500 mls/hr IV [facility] Last Admin: 09/13/19 11:01 Dose: 500 mls/hr Oxytocin/Sodium Chloride (Oxytocin 30 Unit/500 Ml-Ns) 30 unit in 500 mls @ 250 mls/hr IV TITRATE [facility] Sodium Chloride (Saline Flush) 10 ml FLUSH ASDIRECTED PRN PRN Reason: Keep Vein Open Sodium Chloride (Saline Flush) 2.5 ml FLUSH ASDIRECTED PRN PRN Reason: Keep Vein Open Sodium Chloride (Normal Saline) 10 ml IV ASDIRECTED PRN PRN Reason: IV Use Discontinued Medications Citric Acid/Sodium Citrate (Bicitra Solution) 30 ml PO ONETIME ONE Stop: 09/13/19 10:23 Cefazolin Sodium/Dextrose 2 gm (/ Premix) 50 mls @ 100 mls/hr IV ONETIME ONE Stop: 09/13/19 10:51 Ondansetron HCl (Zofran) Confirm Administered Dose 4 mg .ROUTE .STK-MED ONE Stop: 09/13/19 11:24 Oxytocin (Pitocin) Confirm Administered Dose 30 unit .ROUTE .STK-MED ONE Stop: 09/13/19 11:25 Propofol (Diprivan 20 Ml) Confirm Administered Dose 200 mg .ROUTE .STK-MED ONE Stop: 09/13/19 11:24
[2019-09-13] MEDS ORDERED: Morphine PF 10 MG/10 ML SDV ONE (11:44)
[2019-09-13] MEDS ORDERED: Nalbuphine 10 MG/1 ML Vial IVPUSH PRN (11:46)
[2019-09-13] MEDS ORDERED: fentaNYL 100 MCG/2 ML SDV IVPUSH PRN (11:46)
[2019-09-13] MEDS ORDERED: Acetaminophen/oxyCODONE 325-5 MG Tab PO PRN ×2 (11:46→13:18)
[2019-09-13] MEDS ORDERED: Octyl 2-Cyanoacrylate 1 Tube ONE (11:57)
[2019-09-13] MEDS ORDERED: Tranexamic Acid 1,000 MG in Sodium Chloride 0.9% 100 ML IV PRN (13:18)
[2019-09-13] MEDS ORDERED: Ondansetron 4 MG/2 ML SDV IVPUSH PRN (13:18)
[2019-09-13] MEDS ORDERED: diphenhydrAMINE 50 MG/ML SDV IVPUSH PRN (13:18)
[2019-09-13] MEDS ORDERED: Lanolin 100% Cream 7 GM Tube TOP PRN (13:18)
[2019-09-13] MEDS ORDERED: Ibuprofen 800 MG Tab PO PRN (13:18)
[2019-09-13] MEDS ORDERED: Misoprostol 200 MCG Tab RECTAL PRN (13:18)
[2019-09-13] MEDS ORDERED: Methylergonovine 0.2 MG/1 ML Amp IM PRN (13:18)
[2019-09-13] MEDS ORDERED: Oxytocin 10 Units/1 ML SDV IM PRN (13:18)
[2019-09-13] MEDS ORDERED: Bisacodyl 10 MG Supp RECTAL PRN (13:18)
--- NOTE | 2019-09-13 13:23 | PCM.OPNOTE ---
- General Post-Op/Procedure Note Date of Surgery/Procedure: 09/13/19 Operative Procedure(s): Primary C/section. Pre Op Diagnosis: IUP 37 wk placenta previa. Post-Op Diagnosis: Same Anesthesia Technique: Spinal Primary Surgeon: Anurag Bolanos Ice Crusher: Leslie Talbert EBL in mLs: 200 Complications: laceration of the L.uterin artery. Condition: Good
[2019-09-13] MEDS ORDERED: Lactated Ringers 1,000 ML IV SCH (13:30)
[2019-09-13] MEDS: Ketorolac 30 MG/ML SDV IVPUSH SCH ×2 (13:57→19:55)
[2019-09-13] MEDS: Docusate Sodium 100 MG Cap PO SCH (21:27)
[2019-09-14] MEDS: Ketorolac 30 MG/ML SDV IVPUSH SCH ×3 (01:29→13:34)
--- NOTE | 2019-09-14 07:01 | PCM48HPAN ---
Post Anesthesia Note - EVALUATION WITHIN 48HRS OF ANESTHETIC Vital Signs in Normal Range: Yes Patient Participated in Evaluation: Yes Respiratory Function Stable: Yes Airway Patent: Yes Cardiovascular Function Stable: Yes Hydration Status Stable: Yes Pain Control Satisfactory: Yes Nausea and Vomiting Control Satisfactory: Yes Mental Status Recovered: Yes Vital Signs: Last Vital Signs Temp 36.4 C 09/14/19 06:00 Pulse 89 09/14/19 06:00 Resp 17 09/14/19 06:00 BP 107/68 09/14/19 05:00 Pulse Ox 99 09/14/19 06:00
[2019-09-14] MEDS: Docusate Sodium 100 MG Cap PO SCH (08:55)
--- NOTE | 2019-09-14 10:24 | PCM.PNPP ---
- General Info Date of Service: 09/14/19 Admission Dx/Problem (Free Text): Patient Status Order with Admit Dx/Problem 09/13/19 10:22 Patient Status [ADT] Routine Admission Diagnosis/Problem Admission Diagnosis/Problem 09/13/19 11:34 Erika is a 24 yo at 37.0 weeks gestation (ALBERTO 10/04/2020) that presents today for a medically indicated primary section due to complete placenta previa. O pos, RI, GBS neg. Ax: iodine/shellfish (plan to use chlorhexadine products for procedure). Medical history: A1GDM, anxiety, migraines, bicornate uterus. Patient has been seen by Dr. Bolanos about PCS in office, RBAs, SEs discussed, consents signed in office. Patient reports no problems, questions, or concerns at this time except anxiety due to impending surgery. Patient's significant other at the bedside with her. Functional Status: Reports: Pain Controlled - Review of Systems General: Reports: Fatigue HEENT: Reports: No Symptoms Pulmonary: Reports: No Symptoms Cardiovascular: Reports: No Symptoms Gastrointestinal: Reports: No Symptoms Genitourinary: Reports: No Symptoms Musculoskeletal: Reports: No Symptoms, Other (Low transverse incisional pain, / 10) Skin: Reports: Pallor (Pale, warm, dry.) Neurological: Reports: No Symptoms Psychiatric: Reports: No Symptoms - General Info Date of Service: 09/14/19 - Patient Data Vital Signs - Most Recent: Last Vital Signs Temp 97.3 F 09/14/19 08:34 Pulse 88 09/14/19 09:00 Resp 16 09/14/19 09:00 BP 116/76 09/14/19 08:34 Pulse Ox 96 09/14/19 09:00 Weight - Most Recent: 203 lb I&O - Last 24 Hours: Intake & Output 09/13/19 09/14/19 09/14/19 22:59 06:59 14:59 Intake Total 350 Output Total 821 2922 161 Balance -037 -5267 -036 Lab Results - Last 24 Hours: Laboratory Results - last 24 hr 09/13/19 09/13/19 09/13/19 Range/Units 10:45 10:45 11:17 WBC 9.12 (4.0-11.0) K/uL RBC 4.24 L (4.30-5.90) M/uL Hgb 11.6 L (12.0-16.0) g/dL Hct 35.2 L (36.0-46.0) % MCV 83.0 (80.0-98.0) fL MCH 27.4 (27.0-32.0) pg MCHC 33.0 (31.0-37.0) g/dL RDW Std Deviation 41.7 (28.0-62.0) fl RDW Coeff of Thelma 14 (11.0-15.0) % Plt Count 160 (150-400) K/uL MPV 11.40 (7.40-12.00) fL Neut % (Auto) (48.0-80.0) % Lymph % (Auto) (16.0-40.0) % [place] % (Auto) (0.0-15.0) % Eos % (Auto) (0.0-7.0) % Baso % (Auto) (0.0-1.5) % Neut # (Auto) (1.4-5.7) K/uL Lymph # (Auto) (0.6-2.4) K/uL [place] # (Auto) (0.0-0.8) K/uL Eos # (Auto) (0.0-0.7) K/uL Baso # (Auto) (0.0-0.1) K/uL Nucleated RBC % 0.0 /100WBC Nucleated RBCs # 0 K/uL POC Glucose 79 (60-110) mg/dL Blood Type O POSITIVE Antibody Screen NEGATIVE Crossmatch See Detail 09/13/19 09/14/19 Range/Units 20:07 05:55 WBC 8.93 (4.0-11.0) K/uL RBC 3.80 L (4.30-5.90) M/uL Hgb 10.8 L 10.5 L (12.0-16.0) g/dL Hct 32.2 L 31.7 L (36.0-46.0) % MCV 83.4 (80.0-98.0) fL MCH 27.6 (27.0-32.0) pg MCHC 33.1 (31.0-37.0) g/dL RDW Std Deviation 41.6 (28.0-62.0) fl RDW Coeff of Thelma 14 (11.0-15.0) % Plt Count 127 L (150-400) K/uL MPV 10.80 (7.40-12.00) fL Neut % (Auto) 69.5 (48.0-80.0) % Lymph % (Auto) 23.0 (16.0-40.0) % [place] % (Auto) 6.3 (0.0-15.0) % Eos % (Auto) 1.0 (0.0-7.0) % Baso % (Auto) 0.2 (0.0-1.5) % Neut # (Auto) 6.2 H (1.4-5.7) K/uL Lymph # (Auto) 2.1 (0.6-2.4) K/uL [place] # (Auto) 0.6 (0.0-0.8) K/uL Eos # (Auto) 0.1 (0.0-0.7) K/uL Baso # (Auto) 0.0 (0.0-0.1) K/uL Nucleated RBC % 0.0 /100WBC Nucleated RBCs # 0 K/uL POC Glucose (60-110) mg/dL Blood Type Antibody Screen Crossmatch Med Orders - Current: Current Medications Bisacodyl (Dulcolax) 10 mg RECTAL ONETIME PRN PRN Reason: Constipation Diphenhydramine HCl (Benadryl) 25 mg IVPUSH Q6H PRN PRN Reason: Itching or Nausea Docusate Sodium (Colace) 100 mg PO BID [facility] Last Admin: 09/14/19 08:55 Dose: 100 mg Emollient Ointment (Lansinoh Hpa) 0 gm TOP ASDIRECTED PRN PRN Reason: Sore Nipples Fentanyl (Sublimaze) 50 mcg IVPUSH Q5M PRN PRN Reason: Pain (severe 7-10) Stop: 09/14/19 11:46 Lactated Ringer's (Ringers, Lactated) 1,000 mls @ 500 mls/hr IV BOLUS [facility] Last Admin: 09/13/19 12:05 Dose: 500 mls/hr Oxytocin/Sodium Chloride (Oxytocin 30 Unit/500 Ml-Ns) 30 unit in 500 mls @ 250 mls/hr IV TITRATE [facility] Tranexamic Acid 1,000 mg/ (Sodium Chloride) 110 mls @ 660 mls/hr IV ONETIME PRN PRN Reason: Bleeding Lactated Ringer's (Ringers, Lactated) 1,000 mls @ 125 mls/hr IV ASDIRECTED [facility] Last Admin: 09/13/19 14:01 Dose: 125 mls/hr Ibuprofen (Motrin) 800 mg PO Q8H PRN PRN Reason: mild pain or fever Ketorolac Tromethamine (Toradol) 30 mg IVPUSH Q6H [facility] Stop: 09/14/19 13:31 Last Admin: 09/14/19 07:42 Dose: 30 mg Methylergonovine Maleate (Methergine) 0.2 mg IM ONETIME PRN PRN Reason: Excessive Vaginal Bleeding Misoprostol (Cytotec) 1,000 mcg RECTAL ONETIME PRN PRN Reason: excessive bleeding Nalbuphine HCl (Nubain) 2.5 mg IVPUSH Q3H PRN PRN Reason: Pruritis Stop: 09/14/19 11:46 Ondansetron HCl (Zofran) 4 mg IVPUSH Q4H PRN PRN Reason: Nausea/Vomiting Oxycodone/Acetaminophen (Percocet 325-5 Mg) 1 tab PO ONETIME PRN PRN Reason: Pain (moderate 4-6) Oxycodone/Acetaminophen (Percocet 325-5 Mg) 1 tab PO Q4H PRN PRN Reason: Pain (moderate 4-6) Oxycodone/Acetaminophen (Percocet 325-5 Mg) 2 tab PO Q4H PRN PRN Reason: Pain (moderate 4-6) Oxytocin (Pitocin) 10 unit IM ASDIRECTED PRN PRN Reason: Excessive Vaginal Bleeding Sodium Chloride (Saline Flush) 10 ml FLUSH ASDIRECTED PRN PRN Reason: Keep Vein Open Sodium Chloride (Saline Flush) 2.5 ml FLUSH ASDIRECTED PRN PRN Reason: Keep Vein Open Sodium Chloride (Normal Saline) 10 ml IV ASDIRECTED PRN PRN Reason: IV Use Discontinued Medications Cefazolin Sodium (Ancef) Confirm Administered Dose 2 gm .ROUTE .STK-MED ONE Stop: 09/13/19 11:44 Citric Acid/Sodium Citrate (Bicitra Solution) 30 ml PO ONETIME ONE Stop: 09/13/19 10:23 Last Admin: 09/13/19 12:01 Dose: 30 ml Ephedrine Sulfate (Ephedrine Sulfate) Confirm Administered Dose 100 mg .ROUTE .STK-MED ONE Stop: 09/13/19 11:44 Cefazolin Sodium/Dextrose 2 gm (/ Premix) 50 mls @ 100 mls/hr IV ONETIME ONE Stop: 09/13/19 10:51 Last Admin: 09/13/19 17:27 Dose: Not Given Sodium Chloride (Normal Saline) Confirm Administered Dose 40 mls @ as directed .ROUTE .STK-MED ONE Stop: 09/13/19 11:44 Acetaminophen (Ofirmev) Confirm Administered Dose 100 mls @ as directed .ROUTE .STK-MED ONE Stop: 09/13/19 11:50 Morphine Sulfate (Duramorph Pf) Confirm Administered Dose 10 mg .ROUTE .STK-MED ONE Stop: 09/13/19 11:45 Octyl Cyanoacrylate (Dermabond Advance) Confirm Administered Dose 1 applic .ROUTE .STK-MED ONE Stop: 09/13/19 11:58 Last Admin: 09/13/19 17:27 Dose: Not Given Ondansetron HCl (Zofran) Confirm Administered Dose 4 mg .ROUTE .STK-MED ONE Stop: 09/13/19 11:24 Oxytocin (Pitocin) Confirm Administered Dose 30 unit .ROUTE .STK-MED ONE Stop: 09/13/19 11:25 Propofol (Diprivan 20 Ml) Confirm Administered Dose 200 mg .ROUTE .STK-MED ONE Stop: 09/13/19 11:24 Tranexamic Acid (Cyklokapron) Confirm Administered Dose 1,000 mg .ROUTE .STK- MED ONE Stop: 09/13/19 11:49 - Interaction Disposition, : [place] in Room with Family Infant Interaction: Holding Infant Infant Feeding: Attempted ; Nursed Fair/Poor Support Person: - Recovery Exam Fundal Tone: Firm Fundal Level: 2 Fingerbreadths Below Umbilicus Fundal Placement: Midline Lochia Amount: Small Lochia Color: Rubra/Red Perineum Description: Intact, Minimal Bruising/Swelling Episiotomy/Laceration: None Urinary Elimination: Not Voiding (Indwelling catheter removed 1 hr 20 min ago, expectant management until void. If >6 hours, notify provider.) - Exam General: Alert, Oriented, Cooperative, No Acute Distress, Lethargic HEENT: Pupils Equal, Pupils Reactive, Other (Mucous membranes moist, slightly pale.) Neck: Supple Lungs: Clear to Auscultation, Normal Respiratory Effort Cardiovascular: Regular Rate, Regular Rhythm GI/Abdominal Exam: Normal Bowel Sounds, Soft, Non-Tender, No Organomegaly, No Distention, No Mass Extremities: Normal Inspection, Normal Range of Motion, Non-Tender, No Pedal Edema, Normal Capillary Refill Skin: Warm, Dry, Intact Wound/Incisions: Dressing Dry and Intact (To remove dressing this evening to inspect incision.), Drainage (Scant old drainage noted on dressing.) Neurological: No New Focal Deficit Psy/Mental Status: Alert, Normal Affect, Normal Mood (Fatigue.) - Problem List & Annotations (1) delivery delivered SNOMED Code(s): 120314164 Code(s): O82 - ENCOUNTER FOR DELIVERY WITHOUT INDICATION Status: Acute Priority: High Current Visit: Yes (2) Lactating mother SNOMED Code(s): 281333258, 559626512 Code(s): Z39.1 - ENCOUNTER FOR CARE AND EXAMINATION OF LACTATING MOTHER Status: Acute Priority: High Current Visit: Yes - Problem List Review Problem List Initiated/Reviewed/Updated: Yes - Assessment Assessment:: PPD 0 (22 hours) S/P primary section, low transverse uterine and abdominal incisions due to complete placenta previa. EBL 2000 ml, received 2 units PRBCs during and after procedure. Hgb 09/13/2019 @ 2000: 10.8. CBC completed this am: WBCs: 8.93; Hgb 10.5, Hct 31.7, Plt 127. Patient stable and doing well. Physical assessment unremarkable except notable pallor and fatigue. Patient denies difficulty with ambulating or eating, SOB, HAs, chest or upper abdominal pain, dizziness, or any other problems at this time. Indwelling catheter removed 1 hr 20 min ago, expectant management to void, notify provider if patient has not voided within 6 hours. Patient well controlled. Incision intact and approximated, dressing and abdominal binder reapplied, scant-small old drainage noted, to remove dressing this PM. Dr. Bolanos notified en route to visit patient this am. - Plan Plan:: Continue POC PPD 0 S/P primary section.
[2019-09-15] MEDS: Acetaminophen/oxyCODONE 325-5 MG Tab PO PRN ×3 (00:40→11:54)
[2019-09-15] MEDS: Docusate Sodium 100 MG Cap PO SCH ×2 (05:15→08:46)
[2019-09-15 09:07] VITALS: BP 115/70; PULSE 92
--- NOTE | 2019-09-15 11:13 | PCM.DCSUM1 ---
Discharge Summary - Hospital Course Free Text/Narrative:: Erika is a 24 yo PPD 2 S/P primary section, low transverse uterine and abdominal incisions due to complete placenta previa. O pos, RI, GBS neg. EBL 2000 ml,received 2 units PRBCs during and after procedure. Patient hemodynamically stable, afebrile, and doing well. Physical assessment unremarkable except mild pallor and fatigue. Patient ambulating, eating, voiding independently and without difficulty. Patient well controlled. Incision intact and approximated, dry dressing and abdominal binder reapplied. Patient denies any problems or concerns at this time except moderate intermittent uterine cramping and incision pain relieved with oxycodone, Tylenol , and ibuprofen. Patient reports small rubra lochia with no clots. Patient verbalizes her readiness to be discharged home today. Diagnosis: Stroke: No - Discharge Data Discharge Date: 09/15/19 Discharge Disposition: Home, Self-Care 01 Condition: Good - Referral to Home Health Primary Care Physician: Elizabeth Arnold CNM - Discharge Diagnosis/Problem(s) (1) delivery delivered SNOMED Code(s): 289332921 ICD Code: O82 - ENCOUNTER FOR DELIVERY WITHOUT INDICATION Status: Acute Priority: High Current Visit: Yes (2) Lactating mother SNOMED Code(s): 031058700, [id number] ICD Code: Z39.1 - ENCOUNTER FOR CARE AND EXAMINATION OF LACTATING MOTHER Status: Acute Priority: High Current Visit: Yes - Patient Summary/Data Operative Procedure(s) Performed: Primary C/section. - Patient Instructions Diet: Usual Diet as Tolerated, Regular Diet as Tolerated, Drink 8-10+ Glasses/ Day Activity: As Tolerated, No Lifting Over 20 Pounds, No Strenuous Activities Driving: Do Not Drive (Do not drive under the influence of opiod pain medication. May drive when no longer taking opiod pain medication.) Showering/Bathing: May Shower (May shower. Do not scrub incision. Gently pat dry.), No Tub Bathing/Swimming (Do not submerse incision. ) Wound/Incision Care: Keep Operative Site/Wound Site Clean and Dry, Change Dressing Daily, Do NOT Change Dressing Notify Provider of: Fever, Increased Pain, Swelling and Redness, Drainage, Nausea and/or Vomiting - Discharge Plan *PRESCRIPTION DRUG MONITORING PROGRAM REVIEWED*: No *COPY OF PRESCRIPTION DRUG MONITORING REPORT IN PATIENT JULISSA: No Prescriptions/Med Rec: Acetaminophen/oxyCODONE [Percocet 325-5 MG] 1 - 2 tab PO Q6H PRN #30 tablet PRN Reason: Pain Docusate Sodium [Colace] 100 mg PO BID #60 cap Ibuprofen [Motrin] 800 mg PO Q8H PRN #90 tablet PRN Reason: Pain Home Medications: Home Meds No122/Iron/Folic Acid [ Multi Tablet] 1 each PO DAILY 11/08/15 [History] Acetaminophen/oxyCODONE [Percocet 325-5 MG] 1 - 2 tab PO Q6H PRN #30 tablet 10/27 [Rx] Docusate Sodium [Colace] 100 mg PO BID #60 cap 09/15/19 [Rx] Ibuprofen [Motrin] 800 mg PO Q8H PRN #90 tablet 09/15/19 [Rx] Oxygen Therapy Mode: Room Air - Discharge Summary/Plan Comment DC Time >30 min.: Yes (May be discharged home today.) - General Info Date of Service: 09/15/19 Admission Dx/Problem (Free Text: Patient Status Order with Admit Dx/Problem 09/13/19 10:22 Patient Status [ADT] Routine Admission Diagnosis/Problem Admission Diagnosis/Problem 09/13/19 11:34 Erika is a 24 yo at 37.0 weeks gestation (ALBERTO 10/04/2020) that presents today for a medically indicated primary section due to complete placenta previa. O pos, RI, GBS neg. Ax: iodine/shellfish (plan to use chlorhexadine products for procedure). Medical history: A1GDM, anxiety, migraines, bicornate uterus. Patient has been seen by Dr. Bolanos about PCS in office, RBAs, SEs discussed, consents signed in office. Patient reports no problems, questions, or concerns at this time except anxiety due to impending surgery. Patient's significant other at the bedside with her. Functional Status: Reports: Pain Controlled - Review of Systems General: Reports: Weakness, Fatigue HEENT: Reports: No Symptoms Pulmonary: Reports: No Symptoms Cardiovascular: Reports: No Symptoms Gastrointestinal: Reports: No Symptoms Genitourinary: Reports: Pain (Moderate uterine cramping and lower abdominal incision pain, small vaginal bleeding with no clots.) Musculoskeletal: Reports: No Symptoms Skin: Reports: No Symptoms Neurological: Reports: No Symptoms Psychiatric: Reports: No Symptoms - Patient Data Vitals - Most Recent: Last Vital Signs Temp 97.1 F 09/15/19 09:35 Pulse 92 09/15/19 09:35 Resp 16 09/15/19 09:35 BP 115/70 09/15/19 09:35 Pulse Ox 94 L 09/15/19 09:35 Weight - Most Recent: 203 lb Med Orders - Current: Current Medications Bisacodyl (Dulcolax) 10 mg RECTAL ONETIME PRN PRN Reason: Constipation Diphenhydramine HCl (Benadryl) 25 mg IVPUSH Q6H PRN PRN Reason: Itching or Nausea Docusate Sodium (Colace) 100 mg PO BID [facility] Last Admin: 09/15/19 08:46 Dose: 100 mg Emollient Ointment (Lansinoh Hpa) 0 gm TOP ASDIRECTED PRN PRN Reason: Sore Nipples Lactated Ringer's (Ringers, Lactated) 1,000 mls @ 500 mls/hr IV BOLUS [facility] Last Admin: 09/13/19 12:05 Dose: 500 mls/hr Oxytocin/Sodium Chloride (Oxytocin 30 Unit/500 Ml-Ns) 30 unit in 500 mls @ 250 mls/hr IV TITRATE [facility] Tranexamic Acid 1,000 mg/ (Sodium Chloride) 110 mls @ 660 mls/hr IV ONETIME PRN PRN Reason: Bleeding Lactated Ringer's (Ringers, Lactated) 1,000 mls @ 125 mls/hr IV ASDIRECTED [facility] Last Admin: 09/13/19 14:01 Dose: 125 mls/hr Ibuprofen (Motrin) 800 mg PO Q8H PRN PRN Reason: mild pain or fever Methylergonovine Maleate (Methergine) 0.2 mg IM ONETIME PRN PRN Reason: Excessive Vaginal Bleeding Misoprostol (Cytotec) 1,000 mcg RECTAL ONETIME PRN PRN Reason: excessive bleeding Ondansetron HCl (Zofran) 4 mg IVPUSH Q4H PRN PRN Reason: Nausea/Vomiting Oxycodone/Acetaminophen (Percocet 325-5 Mg) 1 tab PO ONETIME PRN PRN Reason: Pain (moderate 4-6) Last Admin: 09/14/19 19:39 Dose: 1 tab Oxycodone/Acetaminophen (Percocet 325-5 Mg) 1 tab PO Q4H PRN PRN Reason: Pain (moderate 4-6) Last Admin: 09/14/19 15:04 Dose: 1 tab Oxycodone/Acetaminophen (Percocet 325-5 Mg) 2 tab PO Q4H PRN PRN Reason: Pain (moderate 4-6) Last Admin: 09/15/19 07:32 Dose: 2 tab Oxytocin (Pitocin) 10 unit IM ASDIRECTED PRN PRN Reason: Excessive Vaginal Bleeding Sodium Chloride (Saline Flush) 10 ml FLUSH ASDIRECTED PRN PRN Reason: Keep Vein Open Sodium Chloride (Saline Flush) 2.5 ml FLUSH ASDIRECTED PRN PRN Reason: Keep Vein Open Sodium Chloride (Normal Saline) 10 ml IV ASDIRECTED PRN PRN Reason: IV Use Discontinued Medications Cefazolin Sodium (Ancef) Confirm Administered Dose 2 gm .ROUTE .STK-MED ONE Stop: 09/13/19 11:44 Citric Acid/Sodium Citrate (Bicitra Solution) 30 ml PO ONETIME ONE Stop: 09/13/19 10:23 Last Admin: 09/13/19 12:01 Dose: 30 ml Ephedrine Sulfate (Ephedrine Sulfate) Confirm Administered Dose 100 mg .ROUTE .STK-MED ONE Stop: 09/13/19 11:44 Fentanyl (Sublimaze) 50 mcg IVPUSH Q5M PRN PRN Reason: Pain (severe 7-10) Stop: 09/14/19 11:46 Cefazolin Sodium/Dextrose 2 gm (/ Premix) 50 mls @ 100 mls/hr IV ONETIME ONE Stop: 09/13/19 10:51 Last Admin: 09/13/19 17:27 Dose: Not Given Sodium Chloride (Normal Saline) Confirm Administered Dose 40 mls @ as directed .ROUTE .STK-MED ONE Stop: 09/13/19 11:44 Acetaminophen (Ofirmev) Confirm Administered Dose 100 mls @ as directed .ROUTE .STK-MED ONE Stop: 09/13/19 11:50 Ketorolac Tromethamine (Toradol) 30 mg IVPUSH Q6H [facility] Stop: 09/14/19 13:31 Last Admin: 09/14/19 13:34 Dose: 30 mg Morphine Sulfate (Duramorph Pf) Confirm Administered Dose 10 mg .ROUTE .STK-MED ONE Stop: 09/13/19 11:45 Nalbuphine HCl (Nubain) 2.5 mg IVPUSH Q3H PRN PRN Reason: Pruritis Stop: 09/14/19 11:46 Octyl Cyanoacrylate (Dermabond Advance) Confirm Administered Dose 1 applic .ROUTE .STK-MED ONE Stop: 09/13/19 11:58 Last Admin: 09/13/19 17:27 Dose: Not Given Ondansetron HCl (Zofran) Confirm Administered Dose 4 mg .ROUTE .STK-MED ONE Stop: 09/13/19 11:24 Oxytocin (Pitocin) Confirm Administered Dose 30 unit .ROUTE .STK-MED ONE Stop: 09/13/19 11:25 Propofol (Diprivan 20 Ml) Confirm Administered Dose 200 mg .ROUTE .STK-MED ONE Stop: 09/13/19 11:24 Tranexamic Acid (Cyklokapron) Confirm Administered Dose 1,000 mg .ROUTE .STK- MED ONE Stop: 09/13/19 11:49 - Exam General: Reports: Alert, Oriented, Cooperative, No Acute Distress HEENT: Reports: Pupils Equal, Pupils Reactive, Mucous Membr. Moist/[place] Neck: Reports: Supple Lungs: Reports: Clear to Auscultation, Normal Respiratory Effort Cardiovascular: Reports: Regular Rate, Regular Rhythm GI/Abdominal Exam: Normal Bowel Sounds, Soft, Non-Tender, No Organomegaly, No Distention (Female) Exam: Enlarged Uterus ( uterus, firm U-3), Uterine Tenderness (Moderate uterine cramping and lower transverse incision pain upon palpation.), Vaginal Bleeding (Small rubra lochia, no clots.) Rectal (Female) Exam: Deferred Back Exam: Reports: Normal Inspection, Full Range of Motion Extremities: Normal Inspection, Normal Range of Motion, Non-Tender, No Pedal Edema, Normal Capillary Refill Skin: Reports: Warm, Dry, Intact Wound/Incisions: Reports: Dressing Dry and Intact (Lower transverse incision approximated and intact.), No Drainage Neurological: Reports: No New Focal Deficit Psy/Mental Status: Reports: Alert, Normal Affect, Normal Mood
--- NOTE | 2019-09-16 09:10 | OR ---
SURGEON: Anurag Bolanos MD DATE OF PROCEDURE: 09/13/2019 PREOPERATIVE DIAGNOSES: Intrauterine at 37 weeks, placenta previa. POSTOPERATIVE DIAGNOSES: Intrauterine at 37 weeks, placenta previa. OPERATION PERFORMED: Low transverse section. PRIMARY SURGEON: Anurag Bolanos MD MANHOLE STRIPPER: Leslie Talbert CNM ANESTHESIA: Spinal, Dr. Charles and nurse manager cardiology. COMPLICATION: Laceration of the left uterine vessel. ESTIMATED BLOOD LOSS: 2000 mL. INDICATIONS FOR SURGERY: This patient is 37 weeks. She had placenta previa confirmed by repeated ultrasound. The last ultrasound shows it is still placenta previa, but is marginal, but is still covering significant part of the os. The patient is admitted for elective repeat section. DESCRIPTION OF PROCEDURE: The patient was brought to the OR, properly identified, and after adequate level of spinal anesthesia with the patient prepped and draped in sterile fashion as usual, low transverse Pfannenstiel skin incision was done. Chava's fascia and rectus fascia were opened in direction of the incision. The two recti muscles were . Peritoneal cavity was entered. Bladder flap was raised in the usual manner pushing the bladder away from the lower uterine segment and then low transverse uterine incision going through the placenta and delivering the fetus, who had cried immediately, and handed to the resuscitating team for further management and then the placenta was delivered completely without any problem. Then, the uterus was delivered through the outside and repair of the lower uterine segment done with 2-0 Vicryl continuous interlocking in two layers. It was noted during the repair there was a laceration of the left uterine vessel and using #1 Vicryl suture, [id number], on the proximal and distal part of the uterine vessel was applied and the bleeding was stopped. However, until the bleeding was controlled and because the patient had lost a significant amount of blood during the extraction of the fetus, going through the placenta, the estimated blood loss was about 2000 mL. So I instructed the Anesthesia personnel to give the patient two units of packed cells, which she was already cross-matched for. Next, the inspection of the operative field was done. There was no oozing, no bleeding and then the peritoneal cavity evacuated completely from all blood and blood clot and closed with 3-0 Vicryl continuous. The rectus fascia was closed with #1 PDS continuous. Chava's fascia with 3-0 Vicryl continuous. The skin closed with 3-0 on a Pavan needle in subcuticular fashion and Dermabond. Instrument and sponge count was correct. The patient tolerated the procedure well, went to recovery room in stable general condition. JULIANNA MILLER /[id number]
== END 2019-09-15 13:03 | disposition home or self-care (01) | DRG 540 ==
LOC: MW.OB 10:13
PROVIDERS: ADMIT Obstetrics & Gynecology; ATTEND Obstetrics & Gynecology
PROC: 10D00Z1 Extraction of Products of Conception, Low, Open Approach (ICD-10-PCS; principal; 2019-09-13)
PROC: 30233N1 Transfusion of Nonautologous Red Blood Cells into Peripheral Vein, Percutaneous Approach (ICD-10-PCS; 2019-09-13)
DX: O44.03 Complete placenta previa NOS or without hemorrhage, third trimester (principal); Z37.0 Single live birth; Z3A.37 37 weeks gestation of pregnancy
CPT/HCPCS: 36415; 36430; 51702; 59025; 82962; 85014; 85018; 85025; 85027; 86592; 86593; 86850; 86900; 86901; 86920; 86921; 86922; A9270-GY; J0131; J0690; J1885; J2270; J2405; J2590; J2704; J7120; P9016